=== PATIENT | male | born 1995 | race Caucasian/White ===

== ENCOUNTER 2021-10-14 18:11 | Emergency (ER) | payer OTHER ==
[~2021-10-14] VITALS: Ht 167.6 cm; Wt 68.0 kg
[2021-10-14 20:44] LABS: BASOPHIL 0.9 % (0-2); EOSINOPHIL 0.2 % (0-5); HCT 37.6 % (42.0-52.0); HGB 12.6 g/dl (13.2-18.0); LYMPHOCYTE 24.6 % (15-48); MCHC 33.5 g/dL (32.0-36.0); MCV 104.4 fL (78.0-100.0); MONOCYTE 11.5 % (0-12); MPV 10.6 fL (6.0-9.5); NEUTROPHIL 62.4 % (41-80); NRBC 0; PLT 350 K/uL (150-400); RDW 17.1 % (11.5-14.0); WBC 14.6 K/uL (4.0-10.5)
[2021-10-14 21:08] LABS: ALBUMIN 2.6 g/dL (3.4-5.0); BILIRUBIN - TOTAL 2.5 mg/dL (0.2-1.0); BUN/CREAT RATIO (CALC) 10.7 RATIO; CREATININE 0.75 mg/dL (0.67-1.17); GLOBULIN (CALCULATION) 5.3 g/dL; POTASSIUM 4.9 mmol/L (3.5-5.1); TOTAL PROTEIN 7.9 g/dL (6.4-8.2)
[2021-10-14 21:14] LABS: INFLUENZA A NAA NEGATIVE (NEGATIVE)
[2021-10-14 21:16] LABS: CORONAVIRUS 2019 SARS-COV-2 POSITIVE (NEGATIVE)
[2021-10-15] MEDS ORDERED: LASIX20 MG PO (01:51)
[2021-10-15] MEDS ORDERED: ONDANSETRON ODT4 MG PO (02:47)
[2021-10-15 04:34] LABS: INR 1.43 (0.9-1.2); PROTHROMBIN TIME 16.7 SECONDS (11.8-13.4)
[2021-10-15 09:11] LABS: ALBUMIN 2.4 g/dL (3.4-5.0); BILIRUBIN - DIRECT 1.7 mg/dL (0.00-0.20); BILIRUBIN - TOTAL 2.3 mg/dL (0.2-1.0); GLOBULIN (CALCULATION) 5.2 g/dL; TOTAL PROTEIN 7.6 g/dL (6.4-8.2)
[2021-10-17 06:11] LABS: HIV AB/P24 AG SCREEN Non Reactive (Non Reactive)
[2021-10-17 07:10] LABS: HBSAG SCREEN Negative (Negative); HEP A AB, IGM Negative (Negative); HEP B CORE AB, IGM Negative (Negative); HEP C VIRUS AB 1.6 (0.0-0.9)
== END 2021-10-15 23:00 | disposition designated cancer center or children's hospital (05) ==
LOC: FER 18:11
PROVIDERS: Emergency Medicine
DX: K70.31 Alcoholic cirrhosis of liver with ascites (principal); K76.0 Fatty (change of) liver, not elsewhere classified; U07.1 COVID-19; F17.200 Nicotine dependence, unspecified, uncomplicated; Z91.013 Allergy to seafood
CPT/HCPCS: 36415; 71045; 71275; 80053; 80074; 80076; 82140; 83690; 83880; 84484; 85025; 85610; 87040; 87389; G0480; J0692; J1940; J2405; J2550; J3411; J3475; J7030; Q9967; U0002